=== PATIENT | female | born 1985 | race Caucasian/White ===

== ENCOUNTER 2025-02-05 16:02 | Outpatient (CLI) | payer OTHER ==
[2025-02-05 16:19] VITALS: BP 123/82
[2025-02-05] MEDS ORDERED: DIPHENHYDRAMINE HCL 25 MG CAPSULE PO PRN (19:00)
[2025-02-05] MEDS ORDERED: PRENATABS RX T1 EACH PO (19:19)
[2025-02-05] MEDS ORDERED: IRON240 MG PO (19:19)
[2025-02-05 20:32] VITALS: BP 123/86
[2025-02-05 23:37] VITALS: BP 114/77; O2SAT 96
[2025-02-06 04:21] VITALS: BP 122/79
[2025-02-06 06:31] VITALS: BP 121/80; O2SAT 97
[2025-02-06 06:44] LABS: BASO % 0.3 % (0.1-1.2); EOS # 0.09 (0.04-0.54); EOS % 1.2 % (0.7-7.0); LYMPH # 2.20 (1.18-3.74); LYMPH % 28.7 % (19.3-53.1); MEAN PLATELET VOLUME 12.00 fl (9.4-12.4); MONO # 0.72 (0.24-0.82); MONO % 9.4 % (4.7-12.5); NEUT # 4.59 (1.56-6.13); NEUT % 59.9 % (34.0-71.1); RED CELL DISTRIBUTION WIDTH 15.7 % (11.6-14.4)
[2025-02-06 07:12] LABS: INR 1.03
[2025-02-06 07:21] LABS: ALT/SGPT 23.0 U/L (12-78); AST/SGOT 19.0 U/L (15-37); BILIRUBIN TOTAL 0.16 mg/dL (0.3-1.2); BUN CREA RATIO 16.0 (7.0-25.0); CREATININE SERUM 0.49 mg/dL (0.55-1.02); GFR 142.1; GLOBULINA 3.6 G/DL (2.4-3.5); GLUCOSE FASTING 83.0 mg/dL (65-100); OSMOLALITY SERUM 279.0 MOSM/KG (275-295)
[2025-02-06 10:47] VITALS: BP 121/80
== END 2025-02-06 10:46 | disposition home or self-care (01) ==
LOC: NST 16:02 → OBS/DEL 17:44 → NST 02-06 10:46
PROVIDERS: Obstetrics & Gynecology Gynecology; ATTEND Obstetrics & Gynecology Maternal & Fetal Medicine
DX: O26.893 Other specified pregnancy related conditions, third trimester (principal); Z3A.37 37 weeks gestation of pregnancy

== ENCOUNTER 2025-02-10 11:31 | Outpatient (CLI) | payer OTHER ==
[~2025-02-10 11:31] MED LIST: IRON240 MG PO; PRENATABS RX T1 EACH PO
== END 2025-02-10 12:29 | disposition home or self-care (01) ==
LOC: NST 11:31
PROVIDERS: ATTEND Obstetrics & Gynecology Gynecology
DX: Z34.83 Encounter for supervision of other normal pregnancy, third trimester (principal)

== ENCOUNTER 2025-02-12 04:14 | Inpatient (IN) | payer OTHER ==
[~2025-02-12] VITALS: Ht 160 cm; Wt 114.8 kg
[2025-02-12] MEDS ORDERED: RINGERS SOLUTION,LACTATED 1,000 ML IV SCH (04:30)
[2025-02-12] MEDS ORDERED: MORPHINE SULFATE 4 MG/ML CARTRIDGE IV PRN ×2 (04:30→20:30)
[2025-02-12 04:50] VITALS: BP 135/81
[2025-02-12] MEDS ORDERED: PEPCID AC20 MG PO (05:08)
[2025-02-12 05:58] LABS: URINE APPEARANCE Clear; URINE BILIRRUBIN Negative (NEGATIVE); URINE BLOOD Moderate; URINE COLOR Yellow; URINE GLUCOSE Negative (NEGATIVE); URINE KETONE Negative (NEGATIVE); URINE LEUKOCYTE Negative; URINE NITRATE Negative; URINE PROTEIN Negative (NEGATIVE); URINE UROBILINOGEN 0.2 E.U./dl
[2025-02-12 06:01] LABS: URINE BACTERIA 797.7 uL (0.0-1933); URINE EPITHELIAL CELLS 19.6 uL (0.0-38.8); URINE RBC 146.5 uL (0.0-20.8); URINE WBC 5.6 uL (0.0-23.2)
[2025-02-12 06:14] LABS: URINE CAST 0.00 uL (0.0-1.40)
[2025-02-12 06:21] LABS: BASO % 0.4 % (0.1-1.2); EOS # 0.09 (0.04-0.54); EOS % 1.2 % (0.7-7.0); LYMPH # 1.86 (1.18-3.74); LYMPH % 23.9 % (19.3-53.1); MEAN PLATELET VOLUME 12.60 fl (9.4-12.4); MONO # 0.60 (0.24-0.82); MONO % 7.7 % (4.7-12.5); NEUT # 5.11 (1.56-6.13); NEUT % 65.5 % (34.0-71.1); RED CELL DISTRIBUTION WIDTH 16.0 % (11.6-14.4)
[2025-02-12 06:31] LABS: INR 1.01
[2025-02-12 06:43] LABS: ALT/SGPT 25.0 U/L (12-78); AST/SGOT 27.0 U/L (15-37); BILIRUBIN TOTAL 0.25 mg/dL (0.3-1.2); BUN CREA RATIO 13.0 (7.0-25.0); CREATININE SERUM 0.62 mg/dL (0.55-1.02); GFR 108.31; GLOBULINA 4.1 G/DL (2.4-3.5); GLUCOSE FASTING 104.0 mg/dL (65-100); OSMOLALITY SERUM 278.0 MOSM/KG (275-295)
[2025-02-12] MEDS ORDERED: OXYTOCIN 500 ML IV ONE (07:00)
[2025-02-12 07:54] VITALS: BP 126/77
[2025-02-12 11:26] VITALS: BP 138/76
[2025-02-12 15:37] VITALS: BP 116/63
[2025-02-12] MEDS ORDERED: CITRIC ACID/SODIUM CITRATE 30 ML BLIST.PACK PO ONE (18:24)
[2025-02-12] MEDS ORDERED: ERYTHROMYCIN BASE OPHT 1GM EACH TUBE OP ONE (18:34)
[2025-02-12] MEDS ORDERED: OXYTOCIN 10 UNITS/ML VIAL ONE ×2 (18:34→23:22)
[2025-02-12] MEDS ORDERED: CEFAZOLIN SODIUM 1,000 MG VIAL ONE ×2 (19:09→19:52)
[2025-02-12] MEDS ORDERED: OXYTOCIN 1,000 ML IV SCH (20:30)
[2025-02-13 02:28] VITALS: BP 137/79
[2025-02-13 08:00] VITALS: BP 126/78
[2025-02-13 09:10] LABS: BASO % 0.3 % (0.1-1.2); EOS # 0.03 (0.04-0.54); EOS % 0.3 % (0.7-7.0); LYMPH # 1.38 (1.18-3.74); LYMPH % 14.3 % (19.3-53.1); MEAN PLATELET VOLUME 11.40 fl (9.4-12.4); MONO # 0.95 (0.24-0.82); MONO % 9.9 % (4.7-12.5); NEUT # 7.18 (1.56-6.13); NEUT % 74.7 % (34.0-71.1); RED CELL DISTRIBUTION WIDTH 15.9 % (11.6-14.4)
[2025-02-13] MEDS ORDERED: OxyCODONE HCL 5 MG TABLET (ROXICODONE) PO PRN (11:30)
[2025-02-13 17:43] VITALS: BP 112/75
[2025-02-14] MEDS ORDERED: OxyCODONE HCL 5 MG TABLET (ROXICODONE) PO PRN ×2 (06:00)
[2025-02-14 08:00] VITALS: BP 133/84
[2025-02-14 16:00] VITALS: BP 131/80
[2025-02-15 00:52] VITALS: BP 120/77
[2025-02-15 10:12] VITALS: BP 121/66
== END 2025-02-15 14:27 | disposition home or self-care (01) | DRG 788 ==
LOC: LDR 04:14 → OB/GYN 20:15 → LDR 02-23 13:15
PROVIDERS: Obstetrics & Gynecology Gynecology; ADMIT Obstetrics & Gynecology; ATTEND Obstetrics & Gynecology
PROC: 4A1HXCZ Monitoring of Products of Conception, Cardiac Rate, External Approach (ICD-10-PCS; 2025-02-12)
PROC: 10D00Z1 Extraction of Products of Conception, Low, Open Approach (ICD-10-PCS; principal; 2025-02-12 18:00)
DX: O33.8 Maternal care for disproportion of other origin (principal); Z3A.37 37 weeks gestation of pregnancy; Z37.0 Single live birth